=== PATIENT | female | born 1935 | race Two or more races ===

== ENCOUNTER 2019-01-31 07:10 | Day surgery (SDC) | payer MEDICARE, OTHER ==
--- NOTE | 2019-01-25 11:20 | Pre-Procedure Note/Attestation ---
Pre-Procedure Note/Attestation Complete Prior to Procedure Planned Procedure: right Procedure Narrative: Cataract extraction with intraocular lens implant right Indications for Procedure Pre-Operative Diagnosis: Nuclear sclerotic cataract right eye Attestation I attest that I discussed the nature of the procedure; its benefits; risks and complications; and alternatives (and the risks and benefits of such alternatives ), prior to the procedure, with the patient (or the patient's legal retail account representative). I attest that, if there was a reasonable possibility of needing a blood transfusion, the patient (or the patient's legal retail account representative) was given the [facility] of Health Services standardized written summary, pursuant to the [place] Blood Safety Act ([place] Health and Safety Code # 1645, as amended). I attest that I re-evaluated the patient just prior to the surgery and that there has been no change in the patient's H&P, except as documented below: Timmy Skinner MD Jan 25, 2019 11:20
--- NOTE | 2019-01-25 11:23 | Opthalmology H&P ---
Ophthalmology H&P H&P Chief Complaint: decreased vision in right eye HPI Vision Affects Ability to: read, manage personal affairs HPI Narrative Blurry vision Exam Visual Acuity: OD 20/60 OS 20/60 Eye Exam: normal OU: external exam, palpebral fissure-width, marginal reflex distance, levator function, corneas, anterior chambers, fundus exam; findings: lens - NS Cataracts OU Assessment/Plan Treatment Plan: cataract extraction w/ lens implant Goals of Treatment: improvement of vision, enhance quality of life Attestation Attestation The risks and benefits of the surgery as well as alternative procedures were explained to the patient in detail. Timmy Skinner MD Jan 25, 2019 11:23
[~2019-01-31] VITALS: Ht 157.5 cm; Wt 63.5 kg
[~2019-01-31 07:10] MED LIST: Akten 3.5% 1ml Btl RIGHT EYE ONE; Diclofenac Sod 0.1% Op Soln RIGHT EYE SCH; Proparacaine 0.5% Opth Soln 15ml RIGHT EYE ONE; Tetracaine 0.5% Opth 4ml Soln RIGHT EYE ONE
[2019-01-31] MEDS ORDERED: ELIQUIS5 MG PO (10:42)
[2019-01-31] MEDS ORDERED: LOSARTAN POTASS50 MG ORAL (10:42)
[2019-01-31 10:50] VITALS: BP 155/75
[2019-01-31] MEDS: Cyclopentolate 1% Opth Sol 2ml RIGHT EYE SCH ×3 (10:50→11:13)
[2019-01-31] MEDS: Tropicamide 1% Opth 15ml Soln RIGHT EYE SCH ×3 (10:51→11:13)
[2019-01-31] MEDS: Phenylephrine 10% Opth Soln 5ml RIGHT EYE SCH ×3 (10:51→11:13)
[2019-01-31] MEDS: Tobramycin Op Soln 0.3% 5ml RIGHT EYE SCH ×3 (10:52→11:13)
[2019-01-31] MEDS ORDERED: BSS 500ml btl ONE (13:19)
[2019-01-31] MEDS ORDERED: EPINEPHrine 1mg/1ml Amp ONE (13:19)
[2019-01-31] MEDS ORDERED: BSS 15ml BTL ONE (13:20)
[2019-01-31] MEDS ORDERED: Povidone-Iodine 5% opth solution ONE (13:20)
[2019-01-31] MEDS ORDERED: Sodium Hyaluronate 14 mg/ml 0.85ml ONE (13:20)
[2019-01-31 13:55] VITALS: BP 162/75
== END 2019-01-31 14:20 | disposition home or self-care (01) ==
LOC: SUR 07:10
DX: H25.11 Age-related nuclear cataract, right eye (principal); E87.6 Hypokalemia; Z53.8 Procedure and treatment not carried out for other reasons
CPT/HCPCS: 36415; 84132

== ENCOUNTER 2019-07-04 06:06 | Day surgery (SDC) | payer MEDICARE, OTHER ==
--- NOTE | 2019-06-29 16:17 | Opthalmology H&P ---
Ophthalmology H&P H&P Chief Complaint: decreased vision in right eye HPI Vision Affects Ability to: read, manage personal affairs HPI Narrative Blurry vision Exam Visual Acuity: OD 20/50 OS 20/40 Tension: OD 13 OS 13 Eye Exam: normal OU: external exam, palpebral fissure-width, marginal reflex distance, levator function, corneas, anterior chambers, fundus exam; findings: lens - NS cataracts OU Assessment/Plan Treatment Plan: cataract extraction w/ lens implant Goals of Treatment: improvement of vision, enhance quality of life Attestation Attestation The risks and benefits of the surgery as well as alternative procedures were explained to the patient in detail. Timmy Skinner MD Jun 29, 2019 16:17
--- NOTE | 2019-06-29 16:18 | Pre-Procedure Note/Attestation ---
Pre-Procedure Note/Attestation Complete Prior to Procedure Planned Procedure: right Procedure Narrative: Cataract extraction with IOL implant right eye Indications for Procedure Pre-Operative Diagnosis: Nuclear sclerotic cataract right eye Attestation I attest that I discussed the nature of the procedure; its benefits; risks and complications; and alternatives (and the risks and benefits of such alternatives ), prior to the procedure, with the patient (or the patient's legal inbound sales representative). I attest that, if there was a reasonable possibility of needing a blood transfusion, the patient (or the patient's legal inbound sales representative) was given the [facility] of Health Services standardized written summary, pursuant to the [place] Blood Safety Act ([place] Health and Safety Code # 1645, as amended). I attest that I re-evaluated the patient just prior to the surgery and that there has been no change in the patient's H&P, except as documented below: Timmy Skinner MD Jun 29, 2019 16:18
[2019-07-04] VITALS (9 sets, daily range): BP systolic 132–148; BP diastolic 62–75
[~2019-07-04] VITALS: Ht 157.5 cm; Wt 65.8 kg
[~2019-07-04 06:06] MED LIST changes: -Akten 3.5% 1ml Btl RIGHT EYE ONE; -Diclofenac Sod 0.1% Op Soln RIGHT EYE SCH; +ELIQUIS5 MG PO; +LOSARTAN POTASS50 MG ORAL; -Proparacaine 0.5% Opth Soln 15ml RIGHT EYE ONE; -Tetracaine 0.5% Opth 4ml Soln RIGHT EYE ONE
[2019-07-04] MEDS ORDERED: Akten 3.5% 1ml Btl RIGHT EYE ONE (07:00)
[2019-07-04] MEDS ORDERED: Proparacaine 0.5% Opth Soln 15ml RIGHT EYE ONE (07:00)
[2019-07-04] MEDS ORDERED: Tetracaine 0.5% Opth 4ml Soln RIGHT EYE ONE (07:00)
[2019-07-04] MEDS ORDERED: Carbachol 0.01% Op Soln 1.5ml vial ONE (08:50)
[2019-07-04] MEDS ORDERED: EPINEPHrine 1mg/1ml Amp ONE (08:50)
[2019-07-04] MEDS ORDERED: acetaZOLAMIDE 500mg Inj ONE (08:50)
[2019-07-04] MEDS ORDERED: Lidocaine 4% Amp 5ml ONE (08:50)
[2019-07-04] MEDS ORDERED: BSS 15ml BTL ONE (08:51)
[2019-07-04] MEDS ORDERED: Povidone-Iodine 5% opth solution ONE (08:51)
[2019-07-04] MEDS ORDERED: BSS 500ml btl ONE (08:51)
[2019-07-04] MEDS ORDERED: Sodium Hyaluronate 10 mg/ml 0.85ml ONE (08:51)
[2019-07-04] MEDS ORDERED: HYDROCHLOROTHIA25 MG ORAL (08:57)
[2019-07-04] MEDS ORDERED: AMLODIPINE BESY10 MG ORAL (08:57)
[2019-07-04] MEDS: Diclofenac Sod 0.1% Op Soln RIGHT EYE SCH ×3 (09:02→09:07)
[2019-07-04] MEDS: Cyclopentolate 1% Opth Sol 2ml RIGHT EYE SCH ×3 (09:03→09:07)
[2019-07-04] MEDS: Tropicamide 1% Opth 15ml Soln RIGHT EYE SCH ×3 (09:03→09:07)
[2019-07-04] MEDS: Phenylephrine 10% Opth Soln 5ml RIGHT EYE SCH ×3 (09:03→09:07)
[2019-07-04] MEDS: Tobramycin Op Soln 0.3% 5ml RIGHT EYE SCH ×2 (09:03→09:07)
[2019-07-04] MEDS ORDERED: LR 1000ml 1,000 ML IVLG SCH (09:22)
--- NOTE | 2019-07-04 09:22 | Anethesia Preoperative Eval ---
Anesthesia Pre-op PMH/ROS General Date of Evaluation: Jul 04, 2019 Time of Evaluation: 09:20 Anesthesiologist: Justo ASA Score: ASA 2 Mallampati Score Class I : Soft palate, uvula, fauces, pillars visible Class II: Soft palate, uvula, fauces visible Class III: Soft palate, base of uvula visible Class IV: Only hard plate visible Mallampati Classification: Class II Surgeon: Susanne Diagnosis: R eye cataract Surgical Procedure: Cataract extraction Anesthesia History: none Family History: no anesthesia problems Allergies: Coded Allergies: No Known Allergies (Unverified , 01/24/19) Medications: see eMAR Patient NPO?: Yes Past Medical History Cardiovascular: Reports: HTN; Denies: CAD, TN, valve dz, arrhythmia, other Pulmonary: Denies: asthma, COPD, MARINO, other Gastrointestinal/Genitourinary: Reports: GERD; Denies: CRI, ESRD, other Neurologic/Psychiatric: Reports: depression/anxiety; Denies: dementia, CVA, TIA, other Endocrine: Reports: hypothyroidism; Denies: DM, steroids, other HEENT: Reports: cataract (L), cataract (R); Denies: glaucoma, SKAGWAY (L), SKAGWAY (R), other Hematology/Immune: Denies: anemia, DVT, bleeding disorder, other Musculoskeletal/Integumentary: Reports: DJD; Denies: OA, RA, DDD, edema, other PMH Narrative: as above PSxH Narrative: See H&P Anesthesia Pre-op Phys. Exam Physician Exam Last Vital Signs Date Time Temp Pulse Resp B/P (MAP) Pulse Ox O2 Delivery O2 Flow Rate FiO2 07/04/19 08:50 Room Air 07/04/19 08:46 98.0 55 14 147/62 97 Constitutional: NAD Neurologic: CN 2-12 intact Cardiovascular: RRR, no M/R/G Respiratory: CTA Gastrointestinal: S/NT/ND Airway Exam Mallampati Score: Class II MO: full Neck: flexible Teeth: missing Dentures: no upper, no lower Anesthesia Pre-op A/P Labs see chart Studies Pre-op Studies: EKG - SR Risk Assessment & Plan Assessment: ASA 2 Plan: MAC Status Change Before Surgery: Stephane Alfonso MD Jul 04, 2019 09:22
[2019-07-04] MEDS ORDERED: fentaNYL 100 mcg/2 mL IV PRN (09:30)
[2019-07-04] MEDS ORDERED: Sterile Water Irrig 1000ml IRRIG ONE (10:00)
[2019-07-04] MEDS ORDERED: Propofol 200mg/20ml IV ONE (10:00)
[2019-07-04] MEDS ORDERED: fentaNYL 100 mcg/2 mL IV ONE (10:00)
[2019-07-04] MEDS ORDERED: LR 1000ml ONE (10:00)
[2019-07-04] MEDS ORDERED: Pilocarpine 1% Opth 15ml Soln ONE (10:00)
[2019-07-04] MEDS ORDERED: Polysporin Oint 15gm TOPIC ONE (10:00)
[2019-07-04] MEDS ORDERED: NS Irrig 1000ml ONE (10:00)
[2019-07-04] MEDS ORDERED: Dexamethasone 4mg/ml vial ONE (10:00)
[2019-07-04] MEDS ORDERED: prednisoLONE acetate 1% Opth Susp 1ml ONE (10:00)
--- NOTE | 2019-07-04 12:15 | Immediate Post-Op Evaluation ---
Immediate Post-Op Evalulation Immediate Post-Op Evalulation Procedure: R eye cataract extraction with IOL Date of Evaluation: Jul 04, 2019 Time of Evaluation: 10:55 IV Fluids: 200 Blood Products: none Estimated Blood Loss: none Urinary Output: none Blood Pressure Systolic: 146 Blood Pressure Diastolic: 58 Pulse Rate: 64 Respiratory Rate: 20 O2 Sat by Pulse Oximetry: 98 Temperature (Fahrenheit): 97.6 Pain Score (1-10): 1 Nausea: No Vomiting: No Complications none Patient Status: awake, patent, none Hydration Status: adequate Stephane Kemp MD Jul 04, 2019 12:15
--- NOTE | 2019-07-04 12:17 | 48 Hour Post Anesthesia Eval ---
Post Anesthesia Evaluation Procedure: R eye cataract extraction with IOL Date of Evaluation: Jul 04, 2019 Time of Evaluation: 12:15 Blood Pressure Systolic: 148 0: 72 Pulse Rate: 64 Respiratory Rate: 22 Temperature (Fahrenheit): 97.6 O2 Sat by Pulse Oximetry: 98 Airway: patent Nausea: No Vomiting: No Pain Intensity: 1 Hydration Status: adequate Cardiopulmonary Status: stable Mental Status/LOC: patient returned to baseline Follow-up Care/Observations: n/a Post-Anesthesia Complications: none Follow-up care needed: ready to discharge Stephane Kemp MD Jul 04, 2019 12:16
--- NOTE | 2019-07-06 08:31 | Brief Operative Note ---
Immediate Post Operative Note Operative Note Chief Complaint: Blurry vision Pre-op Diagnosis: Nuclear sclerotic cataract right eye Procedure: Cataract extraction with IOL implant right eye Post-op Diagnosis: Pseudo OD Findings: consistent w/pre-op dx studies Surgeon: Timmy Skinner MD Anesthesiologist: Stephane Kemp MD Anesthesia: MAC Specimen: none Complications: none Condition: stable Fluids: LR Estimated Blood Loss: none Drains: none Implant(s) used?: Yes - IOL-OD Timmy Skinner MD Jul 06, 2019 08:31
--- NOTE | 2019-07-06 08:34 | Operative Note - PDOC ---
Operative Note Operative Note Date of Operation/Procedure: Jul 04, 2019 Chief Complaint: Blurry vision Pre-op Diagnosis: Nuclear sclerotic cataract right eye Procedure: Cataract extraction with IOL implant right eye Post-op Diagnosis: Pseudo OD Operative Findings: consistent w/pre-op dx studies Surgeon: Timmy Skinner MD Anesthesiologist: Stephane Kemp MD Anesthesia: MAC Specimen: none Complications: none Condition: stable Fluids: LR Estimated Blood Loss: none Drains: none Implant(s) used?: Yes - IOL-OD Indications for Procedure Nuclear sclerotic cataract right eye Description of Procedure This patient has been complaining visually significant cataract in the right eye with the best corrected visual acuity 20/50 under moderate glare conditions worse. The patient complains of difficulties with glare in performing activities of daily living and wants to manage personal affairs with comfort and accuracy and see well enough to move with safety at home and outdoors. The risks, benefits and alternatives of the procedure were discussed with the patient in the office prior to scheduling surgery. All questions from the patient were answered after the surgical procedure was explained in detail. The risks of the procedure as explained to the patient include, but are not limited to, pain, infection, bleeding, loss of vision, retinal detachment, need for further surgery, loss of lens nucleus, double vision, etc. Alternative procedures were discussed which include, to do nothing or seek a second opinion. Informed consent for this procedure was obtained from the patient. The patient was referred to a primary care physician for a cardiopulmonary clearance prior to surgery, after proper evaluation was done patient was properly scheduled for outpatient surgery. The patient was brought to the operating room where the anesthesiologist established I.V. lines and cardiac monitoring leads. Mild intravenous sedation was administered. The patient was then prepared with a 5% solution of povidone -iodine to the conjunctival fornix and lashes, and a 5% solution of povidone- iodine to the lids and periorbital skin. The patient was then draped in the usual sterile fashion. A lid speculum was then placed in the operative eye. A keratome blade was then used to create a biplanar incision into the anterior chamber. Viscoelastics was then instilled into the anterior chamber. A capsulorrhexis was then fashioned with an utrata forceps followed by hydrodissection and hydro delineation of the lens nucleus. Paracentesis incision was made at 3 o'clock with sharp blade. The phacoemulsification unit, after being properly adjusted and tested, was then used to emulsify the nucleus followed by aspiration and irrigation of residual cortical material. Healon was then instilled into the anterior chamber. The corneal wound was then enlarged to the size of the optic with the cory keratome blade. The intraocular lens was then inspected for right power and size and thought to be satisfactory. Then the lens was gently placed in the capsular bag. Positioning within the capsular bag was confirmed by direct visualization. Optic centration was accomplished with a Sinskey hook. Viscoelastics was removed from the anterior chamber using the irrigation and aspiration unit. The corneal wound was then tested for leaks and none were found. The lid speculum were then removed. Sponge and needle counts were correct. An eye patch and shield were placed over the operative eye. The patient was taken to the recovery room in stable condition. There were no complications. The patient tolerated the procedure well. The patient was then transferred to the ambulatory surgery unit in stable and satisfactory condition , was given detailed written instructions and asked to follow up in the office the next day. Timmy Skinner MD Jul 06, 2019 08:34
== END 2019-07-04 12:20 | disposition home or self-care (01) ==
LOC: SUR 06:06
DX: H25.11 Age-related nuclear cataract, right eye (principal); I10 Essential (primary) hypertension; K21.9 Gastro-esophageal reflux disease without esophagitis; F32.9 Major depressive disorder, single episode, unspecified; F41.9 Anxiety disorder, unspecified; E03.9 Hypothyroidism, unspecified; M19.90 Unspecified osteoarthritis, unspecified site
CPT/HCPCS: 66984; J0171; J1100; J2704; J3010; J3370; J7120; V2632; 94003; 94150